=== PATIENT | female | born 1980 | race Two or more races ===

== ENCOUNTER 2025-01-27 15:10 | Emergency (ER) | payer OTHER ==
[~2025-01-27] VITALS: Ht 170.2 cm; Wt 90.7 kg
[2025-01-27] MEDS ORDERED: SYNTHROID75 MCG PO (16:05)
[2025-01-27] MEDS ORDERED: MEGESTROL ACETA40 MG PO (16:06)
[2025-01-27 17:43] LABS: HEMATOCRIT 40.4 % (36.0-45.00); HEMOGLOBIN 13.5 g/dL (12.0-15.00); MEAN CELL VOLUME 88.5 fL (80.00-100.00); MEAN CORPUSCULAR HEMOGLOBIN 29.7 pg (27.00-32.0); MEAN CORPUSCULAR HGB CONC 33.5 g/dl (32.0-36.0); PLATELET COUNT 254 K/uL (150-450); RED BLOOD COUNT 4.57 M/uL (4.00-6.00); RED CELL DISTRIBUTION WIDTH 15.5 % (11.5-14.5)
[2025-01-27 18:04] LABS: URINE APPEARANCE Clear; URINE BILIRRUBIN Negative (NEGATIVE); URINE BLOOD Negative; URINE COLOR Yellow; URINE GLUCOSE Negative (NEGATIVE); URINE KETONE Negative (NEGATIVE); URINE LEUKOCYTE Negative; URINE NITRATE Negative; URINE PROTEIN Negative (NEGATIVE); URINE UROBILINOGEN 0.2 E.U./dl
[2025-01-27 18:14] LABS: ALBUMIN 3.5 gm/dL (3.4-5.0); BILIRUBIN TOTAL 0.54 mg/dL (0.3-1.2); CALCIUM 9.1 mg/dL (8.5-10.1); CREATININE SERUM 0.76 mg/dL (0.55-1.02); GFR 83.06; GLOBULINA 3.5 G/DL (2.4-3.5); POTASSIUM 4.29 mEq/L (3.5-5.1)
[2025-01-27 18:26] LABS: INR 1.11; PARTIAL THROMBOPLASTIN TIME 29.3 SECONDS (22.0-34.0)
[2025-01-27 18:28] LABS: URINE BACTERIA 20.7 uL (0.0-1933); URINE WBC 15.8 uL (0.0-23.2)
[2025-01-27 18:29] LABS: URINE RBC 0.5 uL (0.0-20.8)
== END 2025-01-27 19:24 | disposition home or self-care (01) ==
LOC: ER 15:13
PROVIDERS: General Practice
DX: N83.202 Unspecified ovarian cyst, left side (principal); D25.9 Leiomyoma of uterus, unspecified